=== PATIENT | male | born 1975 | race Caucasian/White ===

== ENCOUNTER 2019-11-06 11:54 | Emergency (ER) | payer BC ==
[2019-11-06 11:59] VITALS: TEMP 98.1
[2019-11-06] MEDS ORDERED: MORPHINE SULFATE 4 MG/ML SYRINGE IV STA (12:24)
[2019-11-06 12:35] LABS: Basophils # (A) 0.1 k/uL (0-0.2); Basophils % (A) 1 %; Eosinophils # (A) 0.5 k/uL (0-0.7); Eosinophils % (A) 4 %; HCT 49.4 % (39.0-53.0); HGB 16.4 gm/dL (13.0-17.5); Lymphocytes # (A) 2.1 k/uL (1.0-4.8); Lymphocytes % (A) 17 %; MCH 28.6 pg (25.0-35.0); MCHC 33.1 g/dL (31.0-37.0); MCV 86.3 fL (80.0-100.0); Mean Platelet Volume 7.5; Monocytes # (A) 0.7 k/uL (0-1.0); Monocytes % (A) 6 %; Neutrophils # (A) 9.2 k/uL (1.3-7.7); Neutrophils % (A) 72 %; Platelet Count 300 k/uL (150-450); RBC 5.72 m/uL (4.30-5.90); RDW 12.8 % (11.5-15.5); WBC 12.7 k/uL (3.8-10.6)
[2019-11-06] MEDS ORDERED: HYDROmorphone 0.5 MG/0.5 ML SYRINGE IVP STA ×2 (12:41→13:20)
[2019-11-06 12:49] LABS: ALT 41 U/L (4-49); African American GFR (CKD) >90 (>60 ml/min/1.73 sqM); Albumin 4.5 g/dL (3.5-5.0); Anion Gap 10 mmol/L; Blood Urea Nitrogen 14 mg/dL (9-20); Calcium 9.6 mg/dL (8.4-10.2); Carbon Dioxide 24 mmol/L (22-30); Chloride 106 mmol/L (98-107); Glucose 104 mg/dL (74-99); Non-African American GFR(CKD) >90 (>60 ml/min/1.73 sqM); Sodium 140 mmol/L (137-145); Total Bilirubin 0.8 mg/dL (0.2-1.3); Total Protein 7.9 g/dL (6.3-8.2)
[2019-11-06] MEDS ORDERED: SODIUM CHLORIDE 0.9% 1,000 ML IV ONE (13:00)
--- NOTE | 2019-11-06 13:03 | US ---
EXAMINATION TYPE: US scrotum with doppler. Grayscale and color Doppler Duplex imaging performed of t he scrotum. DATE OF EXAM: 11/06/2019 COMPARISON: NONE CLINICAL HISTORY: pain. Right groin/testicle pain x few hours EXAM MEASUREMENTS: TESTICLES: Right Testicle: 3.8 x 2.1 x 3.1 cm Left Testicle: 3.7 x 1.9 x 3.0 cm EPIDIDYMIS HEAD: Right Epididymis: 1.0 cm Left Epididymis: 0.9 cm Doppler performed to assess for testicular vascularity; good bilateral color flow and waveforms are s een. There is no evidence of testicular torsion. Presence of hydroceles: No Presence of varicoceles: No Rt groin also imaged with valsalva, no evidence of inguinal hernia IMPRESSION: NORMAL INTRINSIC TESTICLES.
[2019-11-06 13:09] VITALS: RESP 20
[2019-11-06 13:09] LABS: AST 33 U/L (17-59); Alkaline Phosphatase 60 U/L (38-126); Potassium 4.6 mmol/L (3.5-5.1)
[2019-11-06] MEDS ORDERED: KETOROLAC 30 MG/ML 1 ML VIAL IVP STA (13:20)
--- NOTE | 2019-11-06 13:27 | ED ---
General Adult HPI - General Source: patient, RN notes reviewed, old records reviewed Mode of arrival: ambulatory Limitations: no limitations <Adam Schuster - Last Filed: 11/06/19 14:08> <Percy Funes - Last Filed: 11/06/19 15:09> - General Chief complaint: Urogenital Stated complaint: Male /pain Time Seen by Provider: 11/06/19 12:00 - History of Present Illness Initial comments: 44-year-old male patient presented to ED chief complaint of right sided scrotal pain as well as right lower flank pain. Patient reports that the symptoms began approximately prior to presentation. Denies any prior history of kidney stones. Denies any testicular pain. Denies any other complaints. Systemic: Pt denies fatigue, fever/chills, rash. Pt denies weakness, night sweats, weight loss. Neuro: Pt denies headache, visual disturbances, syncope or pre-syncope. HEENT: Pt denies ocular discharge or irritation, otalgia, rhinorrhea, pharyngitis or notable lymphadenopathy. Cardiopulmonary: Pt denies chest pain, SOB, heart palpitations, dyspnea on exertion. Abdominal/GI: Pt denies abdominal pain, n/v/d. : Pt denies dysuria, burning w/ urination, frequency/urgency. Denies new onset urinary or bowel incontinence. MSK: Pt denies myalgia, loss of strength or function in extremities. Neuro: Pt denies new onset weakness, paresthesias. (Adam Schuster) - Related Data Previous Rx's Medication Instructions Recorded Ketorolac [Toradol] 10 mg PO Q6HR #15 tab 11/06/19 Tamsulosin [Flomax] 0.4 mg PO DAILY #10 cap 11/06/19 Allergies Allergy/AdvReac Type Severity Reaction Status Date / Time No Known Allergies Allergy Verified 11/06/19 11:55 Review of Systems ROS Other: All systems not noted in ROS Statement are negative. <Adam Schuster - Last Filed: 11/06/19 14:08> ROS Other: All systems not noted in ROS Statement are negative. <Percy Funes - Last Filed: 11/06/19 15:09> ROS Statement: Those systems with pertinent positive or pertinent negative responses have been documented in the HPI. Past Medical History Past Medical History: Asthma History of Any Multi-Drug Resistant Organisms: None Reported Past Surgical History: Cholecystectomy Past Psychological History: No Psychological Hx Reported Smoking Status: Never smoker Past Alcohol Use History: None Reported Past Drug Use History: None Reported <Adam Schuster - Last Filed: 11/06/19 14:08> General Exam Limitations: no limitations <Adam Schuster - Last Filed: 11/06/19 14:08> - General Exam Comments Initial Comments: Constitutional: NAD, AOX3, Pt has pleasant affect. HEENT: NC/AT, trachea midline, neck supple, no lymphadenopathy. External ears appear normal, without discharge. Mucous membranes moist. Eyes PERRLA, EOM intact. There is no scleral icterus. No pallor noted. Cardiopulmonary: RRR, no murmurs, rubs or gallops, no JVD noted. Lungs CTAB in anterior and posterior jim. No peripheral edema. Abdominal exam: Abdomen soft and non-distended. Abdomen atenolol patient right lower quadrant right flank region.. Bowel sounds active in LLQ. No hepato splenomegaly. No ecchymosis Neuro: CN II-XII grossly intact. No nuchal rigidity. No raccon eyes, no menchaca sign, no hemotympanum. No cervical spinal tenderness. MSK: Sensation intact in upper and lower extremities. Full active ROM in upper and lower extremities, 5/5 stregnth. : Cremasteric reflex intact. Testicles nontender. No masses. (Adam Schuster) Course Vital Signs 11/06/19 11/06/19 11/06/19 11:55 11:59 12:59 Temperature 98.1 F Pulse Rate 68 71 Respiratory 18 20 20 Rate Blood Pressure 135/86 142/76 O2 Sat by Pulse 98 98 Oximetry 11/06/19 13:00 Temperature Pulse Rate 71 Respiratory 20 Rate Blood Pressure 142/76 O2 Sat by Pulse 98 Oximetry Medical Decision Making - Lab Data Result diagrams: 11/06/19 12:31 11/06/19 12:31 <Adam Schuster - Last Filed: 11/06/19 14:08> - Lab Data Result diagrams: 11/06/19 12:31 11/06/19 12:31 <Percy Funes - Last Filed: 11/06/19 15:09> - Medical Decision Making 44-year-old male patient with the chief complaint of right . Pain. Reports this started somewhat abruptly approximately 1.5 hours before. Patient also has a stable, afebrile. Physical exam displayed nontender testicles. Laboratory investigations were obtained mild leukocytosis. Ultrasound is ordered and is negative. Patient's pain then migrated up to his right flank and right lower quadrant region. CT abdomen and pelvis without contrast was ordered. UA pending. Patient was signed out to Dr. Funes pending re-evaluation. (Adam Schuster) CT shows a 3.2 mm stone in the right UVJ (Percy Funes) - Lab Data Lab Results 11/06/19 11/06/19 11/06/19 Range/Units 12:31 12:31 12:31 WBC 12.7 H (3.8-10.6) k/uL RBC 5.72 (4.30-5.90) m/uL Hgb 16.4 (13.0-17.5) gm/dL Hct 49.4 (39.0-53.0) % MCV 86.3 (80.0-100.0) fL MCH 28.6 (25.0-35.0) pg MCHC 33.1 (31.0-37.0) g/dL RDW 12.8 (11.5-15.5) % Plt Count 300 (150-450) k/uL Neutrophils % 72 % Lymphocytes % 17 % Monocytes % 6 % Eosinophils % 4 % Basophils % 1 % Neutrophils # 9.2 H (1.3-7.7) k/uL Lymphocytes # 2.1 (1.0-4.8) k/uL Monocytes # 0.7 (0-1.0) k/uL Eosinophils # 0.5 (0-0.7) k/uL Basophils # 0.1 (0-0.2) k/uL Sodium 140 (137-145) mmol/L Potassium 4.6 (3.5-5.1) mmol/L Chloride 106 (98-107) mmol/L Carbon Dioxide 24 (22-30) mmol/L Anion Gap 10 mmol/L BUN 14 (9-20) mg/dL Creatinine 0.96 (0.66-1.25) mg/dL Est GFR (CKD-EPI)AfAm >90 (>60 ml/min/1.73 sqM) Est GFR (CKD-EPI)NonAf >90 (>60 ml/min/1.73 sqM) Glucose 104 H (74-99) mg/dL Plasma Lactic Acid Ottoniel 1.3 (0.7-2.0) mmol/L Calcium 9.6 (8.4-10.2) mg/dL Total Bilirubin 0.8 (0.2-1.3) mg/dL AST 33 (17-59) U/L ALT 41 (4-49) U/L Alkaline Phosphatase 60 (38-126) U/L Total Protein 7.9 (6.3-8.2) g/dL Albumin 4.5 (3.5-5.0) g/dL Disposition <Adam Schuster - Last Filed: 11/06/19 14:08> Is patient prescribed a controlled substance at d/c from ED?: No Time of Disposition: 15:09 <Percy Funes - Last Filed: 11/06/19 15:09> Clinical Impression: Kidney stone Disposition: HOME SELF-CARE Instructions (If sedation given, give patient instructions): Kidney Stones (ED) Prescriptions: Tamsulosin [Flomax] 0.4 mg PO DAILY #10 cap Ketorolac [Toradol] 10 mg PO Q6HR #15 tab Referrals: Pamela Pizarro MD [Primary Care Provider] - 1-2 days
--- NOTE | 2019-11-06 14:22 | CT ---
EXAMINATION TYPE: CT abdomen pelvis wo con DATE OF EXAM: 11/06/2019 COMPARISON: Previous study dated 12/16/2014. HISTORY: Rt groin pain CT DLP: 2156 mGycm Automated exposure control for dose reduction was used. FINDINGS: Visualized portions of the lungs are clear. There is no pleural or pericardial fluid. The h eart is nonenlarged. There is a small, fixed sliding hiatal hernia. Within the abdomen, the gallbladder is been removed the liver is enlarged measuring 20 cm. The spleen is normal. Both adrenal glands are normal. The left kidney is normal. There is mild hydronephrosis and hydroureter on the right there is a 3.2 mm calculus at the right UVJ . Limited views of the pancreas are normal. There is no significant retroperitoneal, iliac or inguinal adenopathy. The bladder is not distended. There is diverticular change involving the sigmoid colon. There is fatty infiltration of much of the left side of the colon which can BE seen in inflammatory bowel disease. The appendix is normal. Small bowel loops are normal caliber. There is no free fluid and no free air. No bony lesion is seen. IMPRESSION: 1. 3.2 MM CALCULUS IN THE DISTAL RIGHT URETER AT THE LEVEL OF THE UVJ CAUSING MILD RIGHT-SIDED HYDRON EPHROSIS AND HYDROURETER. 2. MILD HEPATOMEGALY. 3. SMALL, FIXED SLIDING HIATAL HERNIA. 4. UNCOMPLICATED DIVERTICULOSIS OF THE SIGMOID COLON. 5. FATTY INFILTRATION OF THE LEFT SIDE OF THE COLON CAN BE A SEQUELA OF INFLAMMATORY BOWEL DISEASE.
[2019-11-06 15:21] VITALS: BP 127/78; PULSE 70
[2019-11-06 15:22] LABS: Appearance,Urine Clear (Clear); Bilirubin,Urine Negative (Negative); Blood,Urine Small (Negative); Color,Urine Yellow; Glucose,Urine (UA) Negative (Negative); Hyaline Casts,Urine 1 /lpf (0-2); Ketones,Urine 1+ (Negative); Leukocyte Esterase,Urine Negative (Negative); Mucus,Urine Few /hpf; Nitrite,Urine Negative (Negative); PH, Urine 6.5 (5.0-8.0); Protein,Urine Trace (Negative); RBC,Urine 26 /hpf (0-5); Specific Gravity,Urine 1.022 (1.001-1.035); Squamous Epithelial Cell,Urine <1 /hpf (0-4); Urobilinogen,Urine <2.0 mg/dL (<2.0); WBC,Urine 3 /hpf (0-5)
== END 2019-11-06 15:25 | disposition home or self-care (01) ==
LOC: EC 11:54
DX: N20.1 Calculus of ureter (principal); D72.829 Elevated white blood cell count, unspecified; Z90.49 Acquired absence of other specified parts of digestive tract
CPT/HCPCS: 36415; 80053; 83605; 85025; 81001; 93975; 76870; 74176; 99285; 96374; 96375 ×2; 96376; 96361; J2270; J1885; J1170